=== PATIENT | female | born 1965 ===

== ENCOUNTER 2019-01-15 10:33 | Outpatient (REF) | payer OTHER, SELFPAY ==
[2019-01-15 19:23] LABS: Anion Gap 9.3 mmol/L (3-11); BUN 16 mg/dL (7-18); CO2 28.7 mmol/L (21.0-32.0); CREATININE 0.82 mg/dL (0.55-1.02); Calcium 9.5 mg/dL (8.5-10.1); Chloride 102 mmol/L (98-107); Cholesterol 288 mg/dL (50-200); Glucose 95 mg/dL (70-100); HDL Cholesterol 108 mg/dL (40-60); LDL CHOLESTEROL 150 mg/dL (<100); Potassium 4.6 mmol/L (3.5-5.1); Sodium 140 mmol/L (136-145); Triglyceride 48 mg/dL (30-150)
[2019-01-18 13:06] LABS: Vitamin D 25 Total 27.7 ng/ml (30-100)
== END 2019-01-15 10:53 ==
LOC: NCHCN 10:33
PROVIDERS: PCP Family Medicine; Visit Provider Family Medicine
DX: Z00.00 Encounter for general adult medical examination without abnormal findings (principal); E55.9 Vitamin D deficiency, unspecified; Z13.220 Encounter for screening for lipoid disorders; Z13.228 Encounter for screening for other metabolic disorders
CPT/HCPCS: 80048; 80061; 82306; 83721

== ENCOUNTER 2023-01-22 15:12 | Outpatient (REF) | payer OTHER, SELFPAY ==
[2023-01-22 16:33] LABS: Anion Gap 7.8 mmol/L (3-11); BUN 15 mg/dL (7-18); CO2 27.2 mmol/L (21.0-32.0); CREATININE 0.8 mg/dL (0.55-1.02); Calcium 9.5 mg/dL (8.5-10.1); Calculated LDL 214 mg/dL (<100); Chloride 102 mmol/L (98-107); Cholesterol 323 mg/dL (<200); Glucose 106 mg/dL (74-106); HDL Cholesterol 91 mg/dL (40-60); Potassium 4.7 mmol/L (3.5-5.1); Sodium 137 mmol/L (136-145); Triglyceride 94 mg/dL (<150)
[2023-01-22 16:56] LABS: Vitamin D 25 Total 40.6 ng/mL (30-100)
== END 2023-01-22 15:13 | disposition home or self-care (01) ==
LOC: NCHCN 15:12
PROVIDERS: PCP Family Medicine; Visit Provider Family Medicine
DX: Z00.00 Encounter for general adult medical examination without abnormal findings (principal); E55.9 Vitamin D deficiency, unspecified; M81.0 Age-related osteoporosis without current pathological fracture
CPT/HCPCS: 80048; 80061; 82306